=== PATIENT | male | born 1990 | race Two or more races ===

== ENCOUNTER 2017-01-11 15:33 | Emergency (ER) | payer OTHER, SELFPAY ==
[~2017-01-11] VITALS: Ht 170.2 cm; Wt 77.1 kg
[~2017-01-11 15:33] MED LIST: IBUPROFEN600 MG ORAL; NKM; ZOFRAN ODT4 MG ORAL
[2017-01-11 15:42] VITALS: BP 134/78
[2017-01-11] MEDS ORDERED: Sodium Chloride 500ML 500 ML IV ONE (15:53)
[2017-01-11] MEDS ORDERED: Morphine Sulfate 4mg/ml Inj IVP ONE (16:00)
[2017-01-11 16:33] LABS: BASOPHILS % (AUTO) 1.4 % (0.0-2.0); EOSINOPHILS % (AUTO) 4.9 % (0.0-3.0); LYMPHOCYTES % (AUTO) 41.5 % (20.0-45.0); MEAN CORPUSCULAR HEMOGLOBIN 29.8 PG (27.0-31.0); MEAN CORPUSCULAR HGB CONC 32.4 G/DL (32.0-36.0); MEAN CORPUSCULAR VOLUME 92 FL (80-99); MEAN PLATELET VOLUME 6.2 FL (6.5-10.1); MONOCYTES % (AUTO) 9.2 % (1.0-10.0); NEUTROPHILS % (AUTO) 43.1 % (45.0-75.0); PLATELET COUNT 300 K/UL (150-450); RED BLOOD COUNT 4.69 M/UL (4.70-6.10); RED CELL DISTRIBUTION WIDTH 11.7 % (11.6-14.8); WHITE BLOOD COUNT 7.3 K/UL (4.8-10.8)
[2017-01-11 16:37] LABS: APPEARANCE,URINE CLEAR; KETONES,URINE NEGATIVE (NEGATIVE); LEUKOCYTE ESTERASE ,URINE NEGATIVE (NEGATIVE); NITRITE,URINE NEGATIVE (NEGATIVE); PH,URINE 5 (4.5-8.0); PROTEIN,URINE NEGATIVE (NEGATIVE); UROBILINOGEN,URINE NORMAL MG/DL (0.0-1.0)
[2017-01-11 16:46] LABS: ALANINE AMINOTRANSFERASE 26 U/L (3-41); ALBUMIN/GLOBULIN RATIO 1.5 (1.0-2.7); ANION GAP 12 (5-15); ASPARTATE AMINO TRANSFERASE 24 U/L (5-40); CALCIUM 9.3 mg/dL (8.6-10.2); CARBON DIOXIDE 26 mEQ/L (20-30); CHLORIDE 102 mEQ/L (98-107); CREATININE 1.1 mg/dL (0.7-1.2); GLOMERULAR FILTRATION RATE > 60 mL/min (>60); HEMOLYSIS 9; LIPASE 33 U/L (< 60); SODIUM 140 mEQ/L (135-145)
[2017-01-11 17:01] VITALS: BP 131/65
[2017-01-11] MEDS ORDERED: BENTYL10 MG ORAL (18:33)
[2017-01-11] MEDS ORDERED: ALPRAZOLAM0.25 MG ORAL (18:33)
[2017-01-11 18:48] VITALS: BP 128/74
--- NOTE | 2017-01-11 21:06 | Emergency Room Report ---
History of Present Illness General Chief Complaint: Abdominal Pain Source: Patient Present Illness HPI 26-year-old male presents to ED for abdominal pain. Notes having abdominal pain times one week. Sharp. 8/10. Lower abdomen. Nonradiating. Denies fevers or chills. Denies nausea or vomiting. Patient states he does feel stressed because of work. Always feels tired. Not sleeping well. No other aggravating relieving factors. Denies any other associated symptoms Allergies: Coded Allergies: No Known Allergies (Unverified , 05/29/13) Patient History Past Medical History: none Past Surgical History: none Pertinent Family History: none Social History: Denies: smoking, alcohol use, drug use Immunizations: UTD Reviewed Nursing Documentation: PMH: Agreed, PSxH: Agreed Nursing Documentation-PMH Past Medical History: No Stated History Review of Systems All Other Systems: negative except mentioned in HPI Physical Exam Vital Signs Date Time Temp Pulse Resp B/P (MAP) Pulse Ox O2 Delivery O2 Flow Rate FiO2 01/11/17 15:42 98.2 82 14 134/78 98 Room Air Sp02 EP Interpretation: reviewed, normal General Appearance: no apparent distress, alert, GCS 15, non-toxic Head: normocephalic, atraumatic Eyes: bilateral eye normal inspection, bilateral eye PERRL ENT: hearing grossly normal, normal pharynx, no angioedema, normal voice Neck: full range of motion, supple/symm/no masses Respiratory: chest non-tender, lungs clear, normal breath sounds, speaking full sentences Cardiovascular #1: regular rate, rhythm, no edema Cardiovascular #2: 2+ carotid (R), 2+ carotid (L), 2+ radial (R), 2+ radial (L) , 2+ dorsalis pedis (R), 2+ dorsalis pedis (L) Gastrointestinal: normal bowel sounds, soft, non-distended, no guarding, no rebound, tenderness - TTP Rectal: deferred Genitourinary: normal inspection, no CVA tenderness Musculoskeletal: back normal, gait/station normal, normal range of motion, non- tender Neurologic: alert, oriented x3, responsive, motor strength/tone normal, sensory intact, speech normal Psychiatric: judgement/insight normal, memory normal, mood/affect normal, no suicidal/homicidal ideation Reflexes: 3+ bicep (R), 3+ bicep (L), 3+ tricep (R), 3+ tricep (L), 3+ knee (R) , 3+ knee (L) Skin: normal color, no rash, warm/dry, well hydrated Lymphatic: no adenopathy Medical Decision Making Diagnostic Impression: Primary Impression: Gastroenteritis Additional Impression: Anxiety ER Course Hospital Course 26-year-old M presents to ED with abdominal pain Differential diagnosis includes-appendicitis, cholecystitis, small bowel obstruction, gastritis, Clinical course Patient placed on stretcher. After initial history and physical I ordered labs , IV fluids, pain medications and CT scan Labs - no leukocytosis, electrolytes ok, LFTs normal CT scan shows no acute pathology, changes c/w enteritis Upon reassessment, patient states pain has improved. Given improvement in symptoms and lack of acute findings, I believe patient can be safely discharged to home. Patient agrees with plan Patient states he always feels anxious and to the point that he sometimes cannot work. Is requesting medication to help with his anxiety. I will write him for low dose Xanax I feel this is a highly complex case requiring extensive working including EKG/ Rhythm strip, Xray/CT/US, Blood/urine lab work, repeat exams while in ED, and administration of strong opiates/narcotics for pain control, admission to hospital or close patient follow up. Diagnosis - gastroenteritis, anxiety Stable and discharged to home with Rx Bentyl, Xanax. Followup with PMD. Return to ED if symptoms recur or worsen Labs Test 01/11/17 15:48 01/11/17 16:00 Urine Color Pale yellow Urine Appearance Clear Urine pH 5 (4.5-8.0) Urine Specific [place] 1.010 (1.005-1.035) Urine Protein Negative (NEGATIVE) Urine Glucose (UA) Negative (NEGATIVE) Urine Ketones Negative (NEGATIVE) Urine Occult Blood Negative (NEGATIVE) Urine Nitrite Negative (NEGATIVE) Urine Bilirubin Negative (NEGATIVE) Urine Urobilinogen Normal MG/DL (0.0-1.0) Urine Leukocyte Esterase Negative (NEGATIVE) White Blood Count 7.3 K/UL (4.8-10.8) Red Blood Count 4.69 M/UL (4.70-6.10) Hemoglobin 14.0 G/DL (14.2-18.0) Hematocrit 43.1 % (42.0-52.0) Mean Corpuscular Volume 92 FL (80-99) Mean Corpuscular Hemoglobin 29.8 PG (27.0-31.0) Mean Corpuscular Hemoglobin Concent 32.4 G/DL (32.0-36.0) Red Cell Distribution Width 11.7 % (11.6-14.8) Platelet Count 300 K/UL (150-450) Mean Platelet Volume 6.2 FL (6.5-10.1) Neutrophils (%) (Auto) 43.1 % (45.0-75.0) Lymphocytes (%) (Auto) 41.5 % (20.0-45.0) Monocytes (%) (Auto) 9.2 % (1.0-10.0) Eosinophils (%) (Auto) 4.9 % (0.0-3.0) Basophils (%) (Auto) 1.4 % (0.0-2.0) Sodium Level 140 mEQ/L (135-145) Potassium Level 4.0 mEQ/L (3.4-4.9) Chloride Level 102 mEQ/L (98-107) Carbon Dioxide Level 26 mEQ/L (20-30) Anion Gap 12 (5-15) Blood Urea Nitrogen 11 mg/dL (7-23) Creatinine 1.1 mg/dL (0.7-1.2) Estimat Glomerular Filtration Rate > 60 mL/min (>60) Glucose Level 103 mg/dL (74-106) Calcium Level 9.3 mg/dL (8.6-10.2) Total Bilirubin < 0.2 mg/dL (0.0-1.2) Aspartate Amino Transf (AST/SGOT) 24 U/L (5-40) Alanine Aminotransferase (ALT/SGPT) 26 U/L (3-41) Alkaline Phosphatase 87 U/L (40-129) Total Protein 7.0 g/dL (6.6-8.7) Albumin 4.2 g/dL (3.5-5.2) Globulin 2.8 g/dL Albumin/Globulin Ratio 1.5 (1.0-2.7) Lipase 33 U/L (< 60) CT/MRI/US Diagnostic Results CT/MRI/US Diagnostic Results : Imaging Test Ordered: CT A/P Impression enteritis Last Vital Signs Date Time Temp Pulse Resp B/P (MAP) Pulse Ox O2 Delivery O2 Flow Rate FiO2 10/5/17 18:48 98.2 82 17 128/74 100 Room Air Status: improved Disposition: HOME, SELF-CARE Condition: Stable Scripts Alprazolam* (XANAX*) 0.25 Mg Tablet 0.25 MG ORAL TID Y for For Anxiety, #10 TAB Prov: GAB BEJARANO M.D. 01/11/17 Dicyclomine Hcl* (BENTYL*) 10 Mg Capsule 10 MG ORAL FOUR TIMES A DAY, #20 CAP Prov: GAB BEJARANO M.D. 01/11/17 Patient Instructions: Viral Gastroenteritis, Adult, [id number] GAB BEJARANO M.D. Jan 11, 2017 21:06
--- NOTE | 2017-01-12 08:44 | Diagnostic Imaging Report ---
Indication: Abdominal pain Technique: Continuous helical transaxial imaging of the abdomen and pelvis was obtained from the lung bases to the pubic symphysis during intravenous contrast administration. Coronal 2-D reformats were also obtained. Study obtained in a Siemens sensation [address] Total Dose length Product (DLP): [address] Dose Index Volume (CTDIvol): 0.15, 13.68 mGy Comparison: None Findings: The lung bases are clear. Mild fluid-filled distended small bowel loops noted. Consider enteritis. Appendix is normal. No free fluid free air identified. No evidence of bowel obstruction. Urinary bladder is mildly distended. Small hiatal hernia is present. Solid organ enhancement normal. Impression: Query mild enteritis. Negative exam otherwise. Normal appendix. The CT scanner at [facility] is accredited by the [employer] and the scans are performed using dose optimization techniques as appropriate to a performed exam including Automatic Exposure control.
== END 2017-01-11 18:48 | disposition home or self-care (01) ==
LOC: EMR 16:35
DX: K52.9 Noninfective gastroenteritis and colitis, unspecified (principal); F41.9 Anxiety disorder, unspecified
CPT/HCPCS: 36415; 74177; 80053; 81003; 83690; 85025; 96361; 96374; 99284; J2270; Q9967

== ENCOUNTER 2017-02-24 19:42 | Emergency (ER) | payer OTHER ==
[~2017-02-24] VITALS: Ht 170.2 cm; Wt 77.1 kg
[~2017-02-24 19:42] MED LIST changes: +ALPRAZOLAM0.25 MG ORAL; +BENTYL10 MG ORAL
[2017-02-24 19:48] VITALS: BP 160/97
--- NOTE | 2017-02-24 20:14 | Emergency Room Report ---
History of Present Illness General Chief Complaint: Upper Extremity Injury Source: Patient Present Illness HPI 26 YO male presents to the emergency department complaining of 10/10 in severity localized pain, swelling, tenderness and bruising to the left hand and wrist times several hours. Patient states that earlier today he slipped on some water when going down some stairs and fell he landed on his left hand/ wrist. Patient thought that his symptoms would get better however he states he' s had progression and swelling and pain and is worried that he may have fractured something. Patient states he has not taken any medication for his pain. Patient denies allergies reports several abrasions to the left upper arm , elbow and left hand. Patient states he did hit his head however he denies loss of consciousness, bleeding, tenderness or bruising. Patient denies nausea , vomiting, neck pain or stiffness. Denies taking blood thinning medications, he is not sure if his Tetanus is UTD. Denies numbness tingling or loss of sensation or gross motor movements of the extremities, incontinence of bowel or bladder. Denies CP, Palpitations, LOC, AMS, dizziness, Changes in Vision, Sensation, paresthesias, or a sudden severe headache. Allergies: Coded Allergies: No Known Allergies (Unverified , 05/29/13) Patient History Past Medical History: see triage record Past Surgical History: none Pertinent Family History: none Reviewed Nursing Documentation: PMH: Agreed, PSxH: Agreed Nursing Documentation-PMH Past Medical History: No Stated History Review of Systems All Other Systems: negative except mentioned in HPI Physical Exam Vital Signs Date Time Temp Pulse Resp B/P (MAP) Pulse Ox O2 Delivery O2 Flow Rate FiO2 02/24/17 19:44 98.2 94 14 160/97 96 Room Air Sp02 EP Interpretation: reviewed, normal General Appearance: no apparent distress, alert, GCS 15, non-toxic Head: normocephalic, atraumatic Eyes: bilateral eye normal inspection, bilateral eye PERRL ENT: hearing grossly normal, normal voice Neck: full range of motion, no bony tend Respiratory: lungs clear, normal breath sounds, speaking full sentences Cardiovascular #1: regular rate, rhythm, normal capillary refill Musculoskeletal: back normal, gait/station normal, normal range of motion, swelling - left hand and wrist, other - Positive for snuff box TTP and pain with axial loading of the left thumb, tender - TTP left hand ( metacarpals), left wrist with obvious swelling and bruising. Neurologic: alert, oriented x3, responsive, motor strength/tone normal, sensory intact, normal gait, speech normal Skin: normal color, no rash, warm/dry, well hydrated, abrasions - to the dorsum of the left hand, lateral left forearm, and posterior elbow. not bleeding at this time. Medical Decision Making PA Attestation Dr. Ferrer is my supervising Physician whom patient management has been discussed with. Diagnostic Impression: Primary Impression: Hand contusion Qualified Codes: S60.222A - Contusion of left hand, initial encounter Additional Impressions: Wrist sprain Qualified Codes: S63.502A - Unspecified sprain of left wrist, initial encounter possible occult scaphoid fracture Abrasions of multiple sites ER Course 26 YO male presents to the emergency department complaining of 10/10 in severity localized pain, swelling, tenderness and bruising to the left hand and wrist times several hours. Patient states that earlier today he slipped on some water when going down some stairs and fell he landed on his left hand/ wrist. Patient thought that his symptoms would get better however he states he' s had progression and swelling and pain and is worried that he may have fractured something. Patient states he has not taken any medication for his pain. Patient denies allergies reports several abrasions to the left upper arm , elbow and left hand. Patient states he did hit his head however he denies loss of consciousness, bleeding, tenderness or bruising. Patient denies nausea , vomiting, neck pain or stiffness. Denies taking blood thinning medications, he is not sure if his Tetanus is UTD. Denies numbness tingling or loss of sensation or gross motor movements of the extremities, incontinence of bowel or bladder. Denies CP, Palpitations, LOC, AMS, dizziness, Changes in Vision, Sensation, paresthesias, or a sudden severe headache. Ddx considered but are not limited to Fracture, dislocation, contusion, Sprain/ Strain/Spasm, abrasions, head injury, concussion just to name a few. Vital signs: are WNL, pt. is afebrile H&PE are most consistent with musculoskeletal injury will perform imaging to r/ o fractures/dislocations. No focal neurological deficit, or symptoms to warrant CT imaging of the head at this time. ORDERS: - X-rays: Left Hand and Wrist: ED INTERVENTIONS: - Pt. given ICE Pack. - Percocet PO -Tdap -Wound cleaning of the abrasions, bacitracin was also applied. _ Thumb SpikaSplint applied to the Left Hand by RN. Pt. remains neurovascularly intact. -- Left arm Sling applied by RN, the Pt. remains neurovascularly intact. -D/w patient the results of his Imaging and possibility of occult scaphoid fracture. He hasbeen instructed to wear a thumb spica splint and to have orthopedic followup with repeat imaging studies. DISCHARGE: At this time pt. is stable for d/c to home. Will provide printed patient care instructions, and any necessary prescriptions. Care plan and follow up instructions have been discussed with the patient prior to discharge. Other X-Ray Diagnostic Results Other X-Ray Diagnostic Results #1: X-Ray ordered: LEFT HAND # of Views/Limited Vs Complete: 3 View Indication: Pain EP Interpretation: Yes PA Xray: Interpretation reviewed, by supervising MD, and agrees with findings. Interpretation: no dislocation, no soft tissue swelling, no fractures Impression: No acute disease Electronically Signed by: Marcia Huffman PA-C Other X-Ray Diagnostic Results #2: X-Ray ordered: LEFT WRIST # of Views/Limited Vs Complete: 3 View Indication: Pain EP Interpretation: Yes PA Xray: Interpretation reviewed, by supervising MD, and agrees with findings. Interpretation: no dislocation, no soft tissue swelling, no fractures Impression: No acute disease Electronically Signed by: Marcia Huffman PA-C Last Vital Signs Date Time Temp Pulse Resp B/P (MAP) Pulse Ox O2 Delivery O2 Flow Rate FiO2 02/24/17 19:48 98.2 84 14 160/97 96 Room Air Disposition: HOME, SELF-CARE Condition: Stable Scripts Hydrocodone Bit/Acetaminophen 5-325* (NORCO 5-325*) 1 Each Tablet 1 TAB ORAL Q6H Y for For Pain, #4 TAB 0 Refills Prov: Marcia Huffman P.A. 02/24/17 Ibuprofen* (MOTRIN*) 600 Mg Tablet 600 MG ORAL THREE TIMES A DAY, #30 TAB 0 Refills Prov: Marcia Huffman P.A. 02/24/17 Bacitracin/Polymyxin B Sulfate (BACITRACIN-POLYMYXIN OINTMENT) 28.35 Gm Oint...g. 1 APPLIC TP BID, #28.3 GM Prov: Marcia Huffman 02/24/17 Referrals: [facility],REFERRING (PCP) Departure Forms: Return to Work Return to Work Date: Feb 28, 2017 Work Restrictions: No Heavy Lifting Other Restrictions: limited use of left hand x 1 week upon return. Return to Full Activity: Mar 06, 2017 Patient Instructions: Hand Contusion, [id number], Scaphoid Fracture, Wrist, Wrist Sprain Additional Instructions: Take medications as directed. Follow up with a CONTRACTS LAW PROFESSOR in 3-5 days, even if your symptoms have resolved. --Please review list of primary care clinics, if you do not already have a primary care provider Return sooner to ED if new symptoms occur, or current symptoms become worse. Do not drink alcohol, drive, or operate heavy machinery while taking [place] as this may cause drowsiness. - Please note that this Emergency Department Report was dictated using F[employer]od[employer] sequencing associate technology software, occasionally this can lead to erroneous entry secondary to interpretation by the dictation equipment. Marcia Huffman Feb 24, 2017 20:14
[2017-02-24] MEDS ORDERED: Tetanus/Diptheria/Pertussis Vaccine 0.5ml Syr IM ONE (20:15)
[2017-02-24] MEDS ORDERED: oxyCODONE HCL/Acetaminophen 5/325mg ORAL ONE (20:15)
[2017-02-24 20:19] VITALS: BP 160/97
[2017-02-24] MEDS ORDERED: Bacitracin Oint UD TOPIC ONE (20:45)
[2017-02-24] MEDS ORDERED: IBUPROFEN600 MG ORAL (20:52)
[2017-02-24] MEDS ORDERED: NORCO 5-325 TA1 EACH ORAL (20:52)
[2017-02-24] MEDS ORDERED: BACITRACIN-P28.35 GM TP (20:52)
--- NOTE | 2017-02-25 09:07 | Diagnostic Imaging Report ---
History: Pain after fall. Technique: Frontal, lateral, and oblique views of the left wrist are provided. Comparison: No prior study is available for comparison. Findings: Overall bony mineralization is within normal limits. There is no evidence of acute fracture or dislocation. No significant erosive or arthritic change is noted. The soft tissues appear grossly normal. No significant joint effusion is noted. Impression: No evidence of acute fracture or dislocation.
--- NOTE | 2017-02-25 09:08 | Diagnostic Imaging Report ---
History: Pain after fall Technique: Frontal, lateral, and oblique views of the left hand are provided. Comparison: No prior study is available for comparison. Findings: Overall bony mineralization is within normal limits. There is no evidence of acute fracture or dislocation. No significant erosive or arthritic change is noted. The soft tissues appear grossly normal. No significant joint effusion is noted. Impression: No evidence of acute fracture or dislocation.
== END 2017-02-24 20:19 | disposition home or self-care (01) ==
LOC: EMR 20:03
DX: S60.222A Contusion of left hand, initial encounter (principal); S60.512A Abrasion of left hand, initial encounter; S50.812A Abrasion of left forearm, initial encounter; S50.312A Abrasion of left elbow, initial encounter; W10.9XXA Fall (on) (from) unspecified stairs and steps, initial encounter; Y92.89 Other specified places as the place of occurrence of the external cause; Z23 Encounter for immunization
CPT/HCPCS: 29125; 90471; 90715; 99283

== ENCOUNTER 2017-06-20 21:41 | Emergency (ER) | payer OTHER ==
[~2017-06-20] VITALS: Ht 170.2 cm; Wt 78.0 kg
[~2017-06-20 21:41] MED LIST changes: +BACITRACIN-P28.35 GM TP; +NORCO 5-325 TA1 EACH ORAL
[2017-06-20] MEDS ORDERED: IBUPROFEN600 MG ORAL (23:34)
[2017-06-21 00:25] VITALS: BP 128/62
--- NOTE | 2017-06-21 01:31 | Emergency Room Report ---
History of Present Illness General Chief Complaint: Pain Present Illness HPI Patient is a 26-year-old male who presented after increased left hand pain. Patient reported having increased pain to the left hand worse after working. Patient states that he had previous injury several months ago in which he fell down to his hand and had no fractures at that time. He denies recent trauma. He states that while working he had been having pain with vibration movements. The patient works making [employer]. Allergies: Coded Allergies: No Known Allergies (Unverified , 05/29/13) Patient History Past Medical History: see triage record Review of Systems All Other Systems: negative except mentioned in HPI Physical Exam Vital Signs Date Time Temp Pulse Resp B/P (MAP) Pulse Ox O2 Delivery O2 Flow Rate FiO2 06/20/17 21:57 97.9 99 16 128/62 97 97.9 General Appearance: well appearing, no apparent distress, alert, GCS 15 Head: normocephalic, atraumatic ENT: hearing grossly normal, normal voice Neck: full range of motion, supple Respiratory: no respiratory distress, speaking full sentences Musculoskeletal: swelling - laxity of mcp joints Neurologic: normal inspection, alert, oriented x3, responsive, mold stacker III-XII nml as tested, normal gait Psychiatric: mood/affect normal Skin: no rash Medical Decision Making Diagnostic Impression: Primary Impression: Ligamentous laxity of hand ER Course Patient presented for hand pain. Differential diagnoses included was not limited to fracture, sprain, arthritis among others.Because of complexity imaging studies were ordered. X-ray of the hand the 3 views interpreted by me showed normal bony alignment without evident fracture. The patient was advised to take NSAIDs and to rest hand is much possible. He is advised to use a Lino wrap. The patient is advised to follow up with primary care doctor in 1 week. Patient is advised to return if any worsening condition or if any changes in status that are concerning. This report is dictated with Synthace scale tester software which may occasionally lead to discrepancies related to use of this software. Last Vital Signs Date Time Temp Pulse Resp B/P (MAP) Pulse Ox O2 Delivery O2 Flow Rate FiO2 06/21/17 00:25 135/89 06/21/17 00:25 97.9 16 97 97.9 06/20/17 21:57 99 Status: improved Disposition: HOME, SELF-CARE Condition: Stable Scripts Ibuprofen* (MOTRIN*) 600 Mg Tablet 600 MG ORAL Q8H Y for For Pain, #30 TAB 0 Refills Prov: Olvin Swartz 06/20/17 Patient Instructions: Finger Sprain, [id number] Olvin Swartz Jun 21, 2017 01:31
--- NOTE | 2017-06-21 08:59 | Diagnostic Imaging Report ---
Indication: Reason For Exam: PAIN, trauma to head Technique: spiral acquisitions obtained through the brain. Angled axial and coronal 5 x 5 mm slices were reconstructed. No IV contrast utilized. Radiation dose was minimized using automated exposure control Total dose length product 1530 mGycm. CTDIvol(s) 70 mGy Comparison: none FINDINGS: No acute hemorrhage or edema. No mass effect or midline shift. There is age-related enlargement of the ventricles and extra axial CSF spaces. There is minimal if any periventricular deep white matter ischemic change. Normal bullard-white differentiation. Visualized orbits are unremarkable. There is right supraorbital scalp soft tissue swelling. Visualized sinuses are unremarkable. Intact calvarium. IMPRESSION: Chronic and age-related changes. Negative for acute intracranial bleed or mass effect Evidence of right supraorbital scalp soft tissue injury The CT scanner at [facility] is accredited by the [employer] and the scans are performed using protocols designed to limit radiation exposure to as low as reasonably achievable to attain images of sufficient resolution adequate for diagnostic evaluation
== END 2017-06-21 00:47 | disposition home or self-care (01) ==
LOC: EMR 22:21
DX: M24.242 Disorder of ligament, left hand (principal)
CPT/HCPCS: 99283

== ENCOUNTER 2017-08-02 15:19 | Emergency (ER) | payer OTHER ==
[~2017-08-02] VITALS: Ht 170.2 cm; Wt 68.0 kg
[2017-08-02 15:34] VITALS: BP 127/80
--- NOTE | 2017-08-02 16:01 | Emergency Room Report ---
History of Present Illness General Chief Complaint: Pain Source: Patient Present Illness HPI 27-year-old male presents to the emergency department complaining of 6 out of 10 in severity pain in the right wrist and medial right forearm just past the elbow 3 days. Patient reports that he also had some intermittent numbness and tingling in the last 3 digits of the right hand. Patient denies trauma or fall he reports repetitive movements of the right hand at his job. Patient denies erythema, increased temperature to palpation, rashes or open wounds. He denies weakness in the affected extremity. Denies gross loss of sensation or gross motor movements of the extremities, incontinence of bowel or bladder. Denies CP, Palpitations, LOC, AMS, dizziness, Changes in Vision, or a sudden severe headache. Allergies: Coded Allergies: No Known Allergies (Unverified , 05/29/13) Patient History Past Medical History: see triage record Past Surgical History: none Pertinent Family History: none Reviewed Nursing Documentation: PMH: Agreed; PSxH: Agreed Nursing Documentation-PMH Past Medical History: No Stated History Review of Systems All Other Systems: negative except mentioned in HPI Physical Exam Vital Signs Date Time Temp Pulse Resp B/P (MAP) Pulse Ox O2 Delivery O2 Flow Rate FiO2 08/02/17 15:29 98.5 99 18 127/80 96 Room Air 98.4 Sp02 EP Interpretation: reviewed, normal General Appearance: no apparent distress, alert, GCS 15, non-toxic Head: normocephalic, atraumatic ENT: hearing grossly normal, normal voice Neck: full range of motion Respiratory: chest non-tender, lungs clear, normal breath sounds, speaking full sentences Cardiovascular #1: regular rate, rhythm, normal capillary refill Rectal: deferred Genitourinary: normal inspection Musculoskeletal: back normal, gait/station normal, normal range of motion, tender - TTP medial elbow forearm area, and radial forearm. FROM of elbow and wrist. NVI, no obvious deformity. Neurologic: alert, oriented x3, responsive, motor strength/tone normal, sensory intact, speech normal, other - equal harvest manager strength bilaterally. , grossly normal Psychiatric: judgement/insight normal Skin: normal color, no rash, warm/dry, well hydrated Medical Decision Making PA Attestation Dr. Torres is my supervising Physician whom patient management has been discussed with. Diagnostic Impression: Primary Impression: Right wrist tendonitis Additional Impression: Right elbow tendonitis ER Course 27-year-old male presents to the emergency department complaining of 6 out of 10 in severity pain in the right wrist and medial right forearm just past the elbow 3 days. Patient reports that he also had some intermittent numbness and tingling in the last 3 digits of the right hand. Patient denies trauma or fall he reports repetitive movements of the right hand at his job. Patient denies erythema, increased temperature to palpation, rashes or open wounds. He denies weakness in the affected extremity. Denies gross loss of sensation or gross motor movements of the extremities, incontinence of bowel or bladder. Denies CP, Palpitations, LOC, AMS, dizziness, Changes in Vision, or a sudden severe headache. Ddx considered but are not limited to Fracture, dislocation, contusion, Sprain/ Strain/Spasm, Carpal tunnel syndrome, tendinitis just to name a few Vital signs: are WNL, pt. is afebrile H&PE are most consistent with musculoskeletal injury will perform imaging to r/ o fractures/dislocations. ORDERS: - X-ray Right forearm - negative for fx, Dislocation, or significant soft tissue injury, per preliminary read in ED, and signed by MIKKI Huffman, my supervising physician has reviewed, and agrees with my interpretation. ED INTERVENTIONS: - Motrin PO - Right wrist Splint applied by information technology architect. Pt. remains neurovascularly intact. Lino wrap applied by information technology architect. Pt. remains neurovascularly intact. DISCHARGE: At this time pt. is stable for d/c to home. Will provide printed patient care instructions, and any necessary prescriptions. Care plan and follow up instructions have been discussed with the patient prior to discharge. Other X-Ray Diagnostic Results Other X-Ray Diagnostic Results : X-Ray ordered: xray forearm # of Views/Limited Vs Complete: 3 View Indication: Pain EP Interpretation: Yes MIKKI Xray: Interpretation reviewed, by supervising MD, and agrees with findings. Interpretation: no dislocation, no soft tissue swelling, no fractures, nonspecific bowel gas, no sbo Impression: No acute disease Electronically Signed by: Marcia Huffman PA-C Last Vital Signs Date Time Temp Pulse Resp B/P (MAP) Pulse Ox O2 Delivery O2 Flow Rate FiO2 08/02/17 15:34 98.4 99 18 127/80 96 Room Air 98.4 Disposition: HOME, SELF-CARE Condition: Stable Scripts Naproxen* (NAPROSYN*) 500 Mg Tablet 500 MG ORAL TWICE A DAY, #20 TAB Prov: Marcia Huffman 08/02/17 Departure Forms: Return to Work Return to Work Date: Aug 03, 2017 Work Restrictions: No Heavy Lifting Other Restrictions: light duty, limited use of right hand x 2 weeks. Return to Full Activity: August 17, 2017 Patient Instructions: Carpal Tunnel Syndrome, [id number], Tendinitis, Tennis Elbow, [id number] Additional Instructions: Take medications as directed. SPLINT AT NIGHT x 3 months Follow up with a Primary Care Provider in 3-5 days, even if your symptoms have resolved. --Please review list of primary care clinics, if you do not already have a primary care provider Return sooner to ED if new symptoms occur, or current symptoms become worse. - Please note that this Emergency Department Report was dictated using Nativeflowclinical review specialist technology software, occasionally this can lead to erroneous entry secondary to interpretation by the dictation equipment. Marcia Huffman Aug 02, 2017 16:01
[2017-08-02] MEDS ORDERED: NAPROSYN500 M1 ORAL (16:02)
[2017-08-02 16:19] VITALS: BP 127/80
--- NOTE | 2017-08-02 16:44 | Diagnostic Imaging Report ---
Indications: Pain Technique: Two views of the right forearm Comparison: none Findings: No acute fractures or dislocations. No radiopaque foreign body. Normal mineralization. Impression: Negative
== END 2017-08-02 16:20 | disposition home or self-care (01) ==
LOC: EMR 15:58
DX: M77.9 Enthesopathy, unspecified (principal)
CPT/HCPCS: 99283

== ENCOUNTER 2019-10-16 17:51 | Emergency (ER) | payer SELFPAY ==
[~2019-10-16] VITALS: Ht 170.2 cm; Wt 79.8 kg
[~2019-10-16 17:51] MED LIST changes: +NAPROSYN500 M1 ORAL
[2019-10-16 18:12] VITALS: BP 135/86
[2019-10-16] MEDS ORDERED: HYDROcodone/Acetamin 5/325 tab ORAL ONE (18:30)
[2019-10-16] MEDS ORDERED: Ketorolac 30mg Inj IM ONE (20:00)
--- NOTE | 2019-10-16 20:22 | Emergency Room Report ---
History of Present Illness General Chief Complaint: Upper Extremity Injury Source: Patient (Marcia Huffman) Present Illness HPI 29-year-old male presents to the emergency department complaining of 10 out of 10 severity pain localized to the left hand x2 days. Patient status post having a car fall onto his left hand 2 days ago. He reports significant tenderness, bruising and discoloration under the nails. Patient reports pain exacerbated upon any type of palpation or movement of the left hand. Denies skin temperature changes. He also reports abrasion over the knuckles of the left hand. Denies numbness tingling or loss of sensation or gross motor movements of the extremities, incontinence of bowel or bladder. Denies CP, Palpitations, LOC, AMS, dizziness, Changes in Vision, weakness or a sudden severe headache. Pt. is UTD with tdap. Pt. is right hand dominant. 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 (Marcia Huffman) Patient History Past Medical History: none Past Surgical History: none Pertinent Family History: none Immunizations: UTD - received here on 02/24/17 Reviewed Nursing Documentation: PMH: Agreed; PSxH: Agreed (Marcia Huffman) Nursing Documentation-PMH Past Medical History: No Stated History (Marcia Huffman) Review of Systems All Other Systems: negative except mentioned in HPI (Marcia Huffman) Physical Exam Vital Signs Date Time Temp Pulse Resp B/P (MAP) Pulse Ox O2 Delivery O2 Flow Rate FiO2 10/16/19 17:59 98.2 100 20 139/87 (104) 98 Room Air Sp02 EP Interpretation: reviewed, normal General Appearance: alert, GCS 15, non-toxic, mild distress Head: normocephalic, atraumatic Eyes: bilateral eye normal inspection, bilateral eye PERRL ENT: hearing grossly normal, normal voice Neck: full range of motion Respiratory: lungs clear, normal breath sounds, speaking full sentences Cardiovascular #1: regular rate, rhythm, normal capillary refill Cardiovascular #2: 2+ radial (R), 2+ radial (L) Musculoskeletal: gait/station normal, tender - left fingers 2-4, and distal portion of the left hand. , swelling - left fingers 2-4, and distal portion of the left hand. , other - bruising of left fingers 2-4, and distal portion of the left hand. Neurologic: alert, motor strength/tone normal, oriented x3, sensory intact, responsive, speech normal, grossly normal, other - no sensory deficit Psychiatric: judgement/insight normal Skin: Ecchymosis/Bruising - left fingers 2-4, and distal portion of the left hand. , other - subungual hematoma of digits 1 & 2 of the left hand. (Marcia Huffman) Procedures Nail Trepanation Nail Trepanation : Consent: Verbal Nail Trepanation Location: fingers 2 & 3 of the left hand Method of Drainage: nail cauterized Sterile Dressing Applied: Yes Finger Splint: No Patient Tolerated: Well Complications: None Progress Subungual hematomas did not drain. (Marcia Huffman) Medical Decision Making PA Attestation Dr. Torres Is my supervising Physician whom patient management has been discussed with. (Marcia Huffman) Diagnostic Impression: Primary Impression: Crushed hand and fingers Qualified Codes: S67.22XA - Crushing injury of left hand, initial encounter Additional Impressions: Abrasion hand Subungual hematoma of finger Subungal hematoma of multiple fingers Contusion, fingers ER Course 29-year-old male presents to the emergency department complaining of 10 out of 10 severity pain localized to the left hand x2 days. Patient status post having a car fall onto his left hand 2 days ago. He reports significant tenderness, bruising and discoloration under the nails. Patient reports pain exacerbated upon any type of palpation or movement of the left hand. Denies skin temperature changes. He also reports abrasion over the knuckles of the left hand. Denies numbness tingling or loss of sensation or gross motor movements of the extremities, incontinence of bowel or bladder. Denies CP, Palpitations, LOC, AMS, dizziness, Changes in Vision, weakness or a sudden severe headache. Pt. is UTD with tdap. Pt. is right hand dominant. Ddx considered but are not limited to Fracture, dislocation, contusion, Sprain/ Strain/Spasm, crush injury, compartment syndrome, subungual hematomas just to name a few Vital signs: are WNL, pt. is afebrile H&PE are most consistent with musculoskeletal injury will perform imaging to r/ o fractures/dislocations. ORDERS: - X-ray Left hand 3 views - negative for fx, Dislocation, or significant soft tissue injury, per preliminary read in ED, and signed by MIKKI Huffman, my supervising physician has reviewed, and agrees with my interpretation. x-ray fingers : Pt. declines ED INTERVENTIONS: -- Nail trepanation: subungual hematoma did not drain. - [place] PO -Toradol IM -- Left arm Sling applied by him tech. Pt. remains neurovascularly intact. Orthopedic consult with Dr. Renee regarding patient's pain out of proportion on exam with suspected compartment syndrome. Dr. Renee felt compartment syndrome is unlikely. instructions for close orthopedic follow up. keep extremity elevated, and anti-inflammatories. DISCHARGE: At this time pt. is stable for d/c to home. Will provide printed patient care instructions, and any necessary prescriptions. Care plan and follow up instructions have been discussed with the patient prior to discharge. (Marcia Huffman) ER Course I performed a physical exam on this patient. The patient has soft compartments. He does have pain out of proportion to exam. However, I believe the patient is just very tender to palpation. Patient's compartments of his fingers and fingerpads are very soft. Cap refill is less than 2 seconds and patient is neurologically intact. I did consult orthopedics Dr. Renee, on -call orthopedics for today. He states that compartment syndrome in this region is very unlikely. The patient was educated to follow-up with orthopedics within the next 24 hours for a repeat examination. Patient was given information for the orthopedic urgent care. The patient is given very close return precautions. (Tyra Torres DO) Other X-Ray Diagnostic Results Other X-Ray Diagnostic Results : X-Ray ordered: Left Hand # of Views/Limited Vs Complete: 3 View Indication: Pain EP Interpretation: Yes MIKKI Xray: Interpretation reviewed, by supervising MD, and agrees with findings. Interpretation: no dislocation, no soft tissue swelling, no fractures Impression: No acute disease Electronically Signed by: Marcia Huffman PA-C (Marcia Huffman) Last Vital Signs Date Time Temp Pulse Resp B/P (MAP) Pulse Ox O2 Delivery O2 Flow Rate FiO2 10/16/19 18:55 98.2 10/16/19 18:12 87 18 135/86 99 Room Air (Marcia Huffman) Disposition: HOME, SELF-CARE Condition: Stable Scripts Bacitracin (Bacitracin) 28.4 Gm Oint...g. 1 APPLIC TOPIC THREE TIMES A DAY, #28.4 GM Prov: Marcia Huffman 10/16/19 Ibuprofen* (MOTRIN*) 600 Mg Tablet 600 MG ORAL THREE TIMES A DAY, #30 TAB Prov: Marcia Huffman 10/16/19 Hydrocodone Bit/Acetaminophen 7.5-325* (NORCO 7.5-325*) 1 Each Tablet 1 TAB ORAL Q6H PRN for For Pain, #10 TAB 0 Refills Prov: Marcia Huffman 10/16/19 Referrals: NOT CHOSEN IPA/MD,REFERRING (PCP) Orthopedic Urgent Care Patient Instructions: Crush Injury, Fingers or Toes Additional Instructions: Take medications as directed. !!Do not drink alcohol, drive, or operate heavy machinery while taking [place] as this may cause drowsiness. Follow up with an RETAIL PROJECT MERCHANDISER within 48 hours, even if your symptoms have resolved. !! Return sooner to ED if new symptoms occur, or current symptoms become worse. --Please review ORTHOPEDIC URGENT CARE REFERRAL INFORMATION, if you do not already have a primary care provider who can give you an Orthopedic Referral. - Please note that this Emergency Department Report was dictated using [employer] specialist technology software, occasionally this can lead to erroneous entry secondary to interpretation by the dictation equipment. Marcia Huffman Oct 16, 2019 20:22 Tyra Torres DO Oct 21, 2019 06:54
[2019-10-16 20:34] VITALS: BP 135/86
[2019-10-16] MEDS ORDERED: Bacitracin Oint UD TOPIC ONE (20:45)
[2019-10-16] MEDS ORDERED: IBUPROFEN600 M1 ORAL (20:50)
[2019-10-16] MEDS ORDERED: BACITRACIN15 GM TOPIC (20:50)
[2019-10-16] MEDS ORDERED: NORCO 7.5-3251 EACH ORAL (20:50)
--- NOTE | 2019-10-17 13:48 | Diagnostic Imaging Report ---
Indication: Left hand pain Technique: 3 views left hand Comparison: 06/20/2017 Findings: No acute fractures. No dislocations. The joint spaces are preserved. Small ossific densities adjacent to the proximal lateral cortex of the second and fourth proximal phalanges may reflect old injury or developmental anomalies. These are also evident on the prior study. Impression: No acute bony trauma
== END 2019-10-16 20:34 | disposition home or self-care (01) ==
LOC: EMR 18:20
DX: S60.132A Contusion of left middle finger with damage to nail, initial encounter (principal); S60.122A Contusion of left index finger with damage to nail, initial encounter; S67.22XA Crushing injury of left hand, initial encounter; S60.512A Abrasion of left hand, initial encounter; W23.0XXA Caught, crushed, jammed, or pinched between moving objects, initial encounter; Y93.9 Activity, unspecified; Y92.9 Unspecified place or not applicable
CPT/HCPCS: 11740; 73130; 96372; 99283; J1885